=== PATIENT | male | born 1980 | race African-American/Black ===

== ENCOUNTER 2021-03-26 12:15 | Emergency (ER) | payer OTHER ==
--- OUTSIDE RECORDS SUMMARY | 2021-03-26 12:18 | XMS REPORT | Continuity of Care Document ---
:1980 Author Organization [facility] t Address [address] [place] [address] Care Team Providers Name Role Phone UNKNOWN Primary Care Physician Unavailable HOSSAIN Attending Clinician Unavailable PATIENCESARISHI Admitting Clinician Unavailable Problems This patient has no known problems. Allergies, Adverse Reactions, Alerts This patient has no known allergies or adverse reactions. Medications This patient has no known medications. Procedures This patient has no known procedures. Results Test Description Test Time Test Comments Results Result Comments Source Comprehensive Metabolic Panel 2017-05-26 20:18:00 Test Item Value Reference Range Interpretation Comme nts Sodium (test code = NA) 143 mmol/L 135-145 N Potassium (test code = K) 3.8 mmol/L 3.5-5.1 N Chloride (test code = CL) 104 mmol/L 98-105 N Carbon Dioxide (test code = 24 mmol/L 22-29 N CO2) Glucose (test code = GLU) 102 mg/dL 70-115 N Blood Urea Nitrogen (test 7 mg/dL 6-20 N code = BUN) Creatinine (test code = 0.9 mg/dL 0.7-1.2 N CREAT) Calcium (test code = CA) 9.5 mg/dL 8.3-10.5 N Prot Total (test code = TP) 7.0 g/dL 6.4-8.3 N Albumin (test code = ALB) 4.6 g/dL 3.5-5.2 N A/G Ratio (test code = 1.9 Ratio AGRATIO) Globulin (test code = GLOB) 2.4 2.9-3.1 L Bili Total (test code = 0.3 mg/dL 0.1-0.9 N TBIL) Alk Phos (test code = 92 U/L 40-129 N APHOS) AST (test code = AST) 21 U/L 1-40 N ALT (test code = ALT) 17 U/L 1-41 N BUN/Creatinine Ratio (test 7.8 code = BCRATIO) Anion Gap (test code = 15 mmol/L 7-16 N AGAP) Estimated GFR (test code = >60 mL/min/1.73m2 eGFR (estimated Glomerular GFR) Filtration Rate ) is an estimated value ,calculated from the patien t's serum creatinine usin g the MDRD equation.It is NOT the patient's actua l GFR. The eGFR provides a more clinicallyusefu l measure of kidney disease than serum creatinine ada e.This calculation liborio es sex and race into accou nt, if the informationis p rovided. If the race is not provided, and the patient isAfrican-Ameri can, multiply by 1.212. If se x is not provided, and t hepatient is female, multipl y by 0.742. Results for pat ients <18 years ofage hav e not been validated by th e MDRD study and should be i nterpretedwith caution.eGFR Re sult Interpretation: eGFR > or = 60 is in the [place] RangeeGFR < 60 may mean kid lior diseaseeGFR < 1 5 may mean kidney failure* Ranges recommended by the National Kidney Foundation,http ://nkdep.nih.g ov CBC with [id number] 20:18:00 Test Item Value Reference Range Interpretation Comments WBC (test code = WBC) 5.5 K/cumm 4.4-10.5 N RBC (test code = RBC) 4.55 M/cumm 4.10-5.70 N Hemoglobin (test code = HGB) 14.6 gm/dL 13.4-17.4 N Hematocrit (test code = HCT) 43.9 % 38.7-52.0 N MCV (test code = MCV) 96.6 fL 80-100 N MCH (test code = MCH) 32.1 pg 27.0-32.5 N MCHC (test code = MCHC) 33.2 g/dL 32.0-37.5 N RDW (test code = RDW) 14.7 % 11.5-14.5 H Platelet Count (test code = 220 K/cumm 140-440 N PLTCT) MPV (test code = MPV) 9.3 fL Diff Method (test code = DIFFM) Auto Neutrophil (test code = NEUT) 57.9 % 36-70 N Lymphocyte (test code = LYMPH) 31.7 % 12-44 N Monocyte (test code = MONO) 5.1 % 0-11 N Eosinophil (test code = EOS) 4.6 % 0-7 N Basophil (test code = BASO) 0.6 % 0-2 N Neutro Abs (test code = ANEUT) 3.2 K/cumm 1.6-7.4 N Lymph Abs (test code = ALYMPH) 1.7 K/cumm 0.5-4.6 N [place] Abs (test code = AMONO) 0.3 K/cumm 0.0-1.2 N Eos Abs (test code = AEOS) 0.25 K/cumm 0.00-0.74 N Baso Abs (test code = ABASO) 0.0 K/cumm 0.00-0.21 N [id number] 20:11:00 Test Item Value Reference Range Interpretation Comments Amphetamine (test code Negative Negative N For d iagnostic = AMPH) purposes only, positive result s should always b e assessedin conjunctionwith the patient's medic al history,clinica l examination and otherfindings.T o fulfill legal requirements, a more specific altern ate chemical method must be used inorder to obtain a Confirmed angelique lytical result. GC/MS i s the preferred confi rmatory method. Barbiturates (test Negative Negative N code = ZORAIDA) Benzodiazepine (test Negative Negative N code = AWA) Cocaine (test code = Negative Negative N COCA) Methadone (test code = Negative Negative N MTHD) Opiates (test code = Negative Negative N OPIA) PCP (test code = PCP) Negative Negative N Propoxyphene (test Negative Negative N code = PROPOX) THC (test code = THC) POSITIVE Negative A Alcohol, Urine (test 0.19 g/dL 0.00-0.01 H code = ETOHU) Urinalysis [id number] 20:09:00 Test Item Value Reference Range Interpretation Comments Color (test code = COLOR) Yellow Yellow,Straw,Pl N yellow Clarity (test code = Clear Clear N CLAR) Specific [place] (test 1.006 1.001-1.035 N code = SPGR) pH (test code = PH) 7.0 5.0-9.0 N Ketone (test code = KET) Negative mg/dL Negative N Glucose (test code = Negative mg/dL Negative N GLUCUR) Protein (test code = Negative mg/dL Negative N PROT) Bilirubin (test code = Negative mg/dL Negative N BILI) Occult Blood (test code = Negative Negative N UDOB) Urobilinogen (test code = 0.2 mg/dL 0.2-1.0 N UROB) Nitrite (test code = NIT) Negative Negative N Leuk Esterase (test code Negative Negative N = LEUK) Micros Exam (test code = Not indicated MEXAM)
--- NOTE | 2021-03-26 12:58 | ER ---
Nurse's Notes [facility] Name: Wojciech Zhu III Age: 40 yrs Sex: Male : 1980 Arrival Date: 03/26/2021 Time: 12:16 Bed Waiting Private MD: Diagnosis: ED Course: 03/26 12:16 Patient arrived in ED. ds1 12:58 Patient's name was called from ER lobby. No response. Unable to locate patient. Will ca1 disposition as left without being seen by a provider. Administered Medications: No medications were administered Outcome: 12:58 Patient left the ED. ca1 Signatures: Andria Villalpando ds1 Gloria Page RN RN ca1
== END 2021-03-26 12:58 | disposition left against medical advice (07) ==
LOC: ER 12:15
DX: R69 Illness, unspecified (principal); Z53.21 Procedure and treatment not carried out due to patient leaving prior to being seen by health care provider

== ENCOUNTER 2021-07-17 13:15 | Emergency (ER) | payer OTHER ==
--- OUTSIDE RECORDS SUMMARY | 2021-07-17 13:17 | XMS REPORT | Continuity of Care Document ---
:1980 Author Organization [facility] t Address [address] [place] [address] Care Team Providers Name Role Phone UNKNOWN Primary Care Physician Unavailable HOSSAIN Attending Clinician Unavailable HOSSAIN Admitting Clinician Unavailable Problems This patient has no known problems. Allergies, Adverse Reactions, Alerts Allergy Allergy Status Severity Reaction(s) Onset Inactive Treating Comm ents Source Name Type Date Date Clinician No Known DA Active U [facility] Drug 04-14 Allergie 00:00: s 00 Medications This patient has no known medications. Vital Signs Vital Name Observation Time Observation Value Comments Source 02 Sat by Pulse Oximetry 2021-04-14 19:04:18 98 /min Body Mass Index 2021-04-14 19:04:18 23.1 Height 2021-04-14 19:04:18 182.88\S\72 Pulse Rate 2021-04-14 19:04:18 99 /min Respiratory Rate 2021-04-14 19:04:18 17 /min Temperature 2021-04-14 19:04:18 36.6\S\98 Weight 2021-04-14 19:04:18 11358.703\S\2720 02 Sat by Pulse Oximetry 2021-04-14 18:19:58 100 /min Body Mass Index 2021-04-14 18:19:58 23.1 Height 2021-04-14 18:19:58 182.88\S\72 Pulse Rate 2021-04-14 18:19:58 120 /min Respiratory Rate 2021-04-14 18:19:58 20 /min Temperature 2021-04-14 18:19:58 37.0\S\98.6 Weight 2021-04-14 18:19:58 08666.703\S\2720 02 Sat by Pulse Oximetry 2021-04-14 17:15:17 100 /min Body Mass Index 2021-04-14 17:15:17 23.1 Height 2021-04-14 17:15:17 182.88\S\72 Pulse Rate 2021-04-14 17:15:17 135 /min Respiratory Rate 2021-04-14 17:15:17 20 /min Temperature 2021-04-14 17:15:17 37.0\S\98.6 Weight 2021-04-14 17:15:17 67738.703\S\2720 02 Sat by Pulse Oximetry 2021-04-14 16:55:24 100 /min Body Mass Index 2021-04-14 16:55:24 23.1 Height 2021-04-14 16:55:24 182.88\S\72 Pulse Rate 2021-04-14 16:55:24 135 /min Respiratory Rate 2021-04-14 16:55:24 20 /min Temperature 2021-04-14 16:55:24 37.0\S\98.6 Weight 2021-04-14 16:55:24 77188.703\S\2720 02 Sat by Pulse Oximetry 2021-04-14 16:52:51 100 /min Body Mass Index 2021-04-14 16:52:51 18.2 Height 2021-04-14 16:52:51 185.42\S\73 Pulse Rate 2021-04-14 16:52:51 64 /min Respiratory Rate 2021-04-14 16:52:51 16 /min Temperature 2021-04-14 16:52:51 36.8\S\98.2 Weight 2021-04-14 16:52:51 79722.747\S\2208 WEIGHT 2021-04-14 16:50:00 62.155174 kg HEIGHT 2021-04-14 16:50:00 185.42 cm 02 Sat by Pulse Oximetry 2021-04-14 16:36:33 100 /min Body Mass Index 2021-04-14 16:36:33 23.1 Height 2021-04-14 16:36:33 182.88\S\72 Pulse Rate 2021-04-14 16:36:33 135 /min Respiratory Rate 2021-04-14 16:36:33 20 /min Temperature 2021-04-14 16:36:33 37.0\S\98.6 Weight 2021-04-14 16:36:33 87711.703\S\2720 02 Sat by Pulse Oximetry 2021-04-14 16:33:30 100 /min Body Mass Index 2021-04-14 16:33:30 23.1 Height 2021-04-14 16:33:30 182.88\S\72 Pulse Rate 2021-04-14 16:33:30 135 /min Respiratory Rate 2021-04-14 16:33:30 20 /min Temperature 2021-04-14 16:33:30 37.0\S\98.6 Weight 2021-04-14 16:33:30 66815.703\S\2720 02 Sat by Pulse Oximetry 2021-04-14 16:32:29 100 /min Body Mass Index 2021-04-14 16:32:29 23.1 Height 2021-04-14 16:32:29 182.88\S\72 Pulse Rate 2021-04-14 16:32:29 135 /min Respiratory Rate 2021-04-14 16:32:29 20 /min Temperature 2021-04-14 16:32:29 37.0\S\98.6 Weight 2021-04-14 16:32:29 53616.703\S\2720 02 Sat by Pulse Oximetry 2021-04-14 16:28:24 100 /min Body Mass Index 2021-04-14 16:28:24 23.1 Height 2021-04-14 16:28:24 182.88\S\72 Pulse Rate 2021-04-14 16:28:24 135 /min Respiratory Rate 2021-04-14 16:28:24 20 /min Temperature 2021-04-14 16:28:24 37.0\S\98.6 Weight 2021-04-14 16:28:24 05717.703\S\2720 WEIGHT 2021-04-14 16:24:00 77.315256 kg HEIGHT 2021-04-14 16:24:00 182.88 cm Procedures This patient has no known procedures. [...] ofage hav e not been validated by e MDRD study and should be i nterpretedwith caution.eGFR Re sult Interpretation: eGFR > or = 60 is in the [place] RangeeGFR < 60 may mean kid lior diseaseeGFR < 1 5 may mean kidney failure* Ranges recommended by the National Kidney Foundation,http ://nkdep.nih.g ov CBC with [id number] 20:18:00 Test Item Value Reference Range Interpretation [...] code = ALYMPH) 1.7 K/cumm 0.5-4.6 N [place] Abs (test code = AMONO) 0.3 K/cumm 0.0-1.2 N Eos Abs (test code = AEOS) 0.25 K/cumm 0.00-0.74 N Baso Abs (test code = ABASO) 0.0 K/cumm 0.00-0.21 N [id number] 20:11:00 Test Item Value Reference Range Interpretation [...] g/dL 0.00-0.01 H code = ETOHU) Urinalysis [id number] 20:09:00 Test Item Value Reference Range Interpretation Comments Color (test code = COLOR) Yellow Yellow,Straw,Pl N yellow Clarity (test code = Clear Clear N CLAR) Specific [place] (test 1.006 1.001-1.035 N code = SPGR) [...]
[2021-07-17 18:04] LABS: Urine Blood Trace-intact (Negative); Urine Glucose Negative (Negative); Urine Protein Negative (Negative); Urine Specific Gravity 1.025 (1.005-1.030)
--- NOTE | 2021-07-17 18:17 | RAD REPORT ---
EXAM DESCRIPTION: CT - Stone Protocol - 07/17/2021 6:06 pm CLINICAL HISTORY: Flank pain;Hematuria COMPARISON: No comparisons TECHNIQUE: Axial 3 mm thick images were obtained without oral or IV contrast. The bieux-ap-bjqn span s the entirety of the system including uppermost abdomen and lung bases. All CT scans are performed using dose optimization technique as appropriate and may include automated exposure control or mA/KV adjustment according to patient size. FINDINGS: No hydronephrosis is present and no obstructing ureteral calculi. No nonobstructing renal, ureteral or bladder calculi seen. No suspicious renal masses. Isodense masses and pyelonephritis are not excluded on a stone protocol CT scan. No significant adrenal finding. Urinary bladder is mostly contracted which precludes full assessment. No accurate assessment of possible mass lesion can be mad e. No prostate gland enlargement. Imaged portions of the liver, spleen and pancreas show no suspicious findings on non-contrast imaging . No gallbladder or biliary tree abnormality identified. No suspicious bowel findings. Appendix is normal. No hernia, mass or bulky lymphadenopathy noted. No free air, free fluid or inflammatory stranding. No significant bony abnormality. IMPRESSION: No abnormality identified to explain hematuria. Isodense masses and pyelonephritis are not excluded on stone protocol technique.Bladder cannot be ful ly evaluated in the contracted state. Cystitis and bladder mass cannot be excluded.
[2021-07-17] MEDS ORDERED: NA CHLORIDE 0.9% 1,000 ML ONE (18:28)
--- NOTE | 2021-07-17 18:39 | EDPHYS ---
Physician Documentation [facility] Name: Wojciech Zhu III Age: 40 yrs Sex: Male : 1980 Arrival Date: 07/17/2021 Time: 13:19 Bed 10 Private MD: NISHA Physician Bib Alcala HPI: 07/17 18:33 This 40 yrs old Black Male presents to ER via Ambulatory with complaints of Blood In harpreet urine. 18:33 The patient presents with urinary symptoms, hematuria, and in semem. Onset: The harpreet symptoms/episode began/occurred 1 week(s) ago. Modifying factors: The symptoms are alleviated by nothing, the symptoms are aggravated by sexual intercourse. Associated signs and symptoms: The patient has no apparent associated signs or symptoms. Severity of symptoms: At their worst the symptoms were mild, in the emergency department the symptoms are unchanged. The patient has not experienced similar symptoms in the past. Historical: - Allergies: 14:17 No Known Allergies; ll1 - PMHx: 14:17 None; ll1 - PSHx: 14:17 None; ll1 - Immunization history:: Adult Immunizations up to date. - Social history:: Smoking status: Patient denies any tobacco usage or history of. ROS: 18:34 Constitutional: Negative for fever, chills, and weight loss, Eyes: Negative for injury, harpreet pain, redness, and discharge, ENT: Negative for injury, pain, and discharge, Neck: Negative for injury, pain, and swelling, Cardiovascular: Negative for chest pain, palpitations, and edema, Respiratory: Negative for shortness of breath, cough, wheezing, and pleuritic chest pain, Abdomen/GI: Negative for abdominal pain, nausea, vomiting, diarrhea, and constipation, Back: Negative for injury and pain, MS/Extremity: Negative for injury and deformity, Skin: Negative for injury, rash, and discoloration, Neuro: Negative for headache, weakness, numbness, tingling, and seizure, Psych: Negative for depression, anxiety, suicide ideation, homicidal ideation, and hallucinations, Allergy/Immunology: Negative for hives, rash, and allergies, Endocrine: Negative for neck swelling, polydipsia, polyuria, polyphagia, and marked weight changes, Hematologic/Lymphatic: Negative for swollen nodes, abnormal bleeding, and unusual bruising. 18:34 : Positive for hematuria. Exam: 18:34 Constitutional: This is a well developed, well nourished patient who is awake, alert, harpreet and in no acute distress. Head/Face: Normocephalic, atraumatic. Eyes: Pupils equal round and reactive to light, extra-ocular motions intact. Lids and lashes normal. Conjunctiva and sclera are non-icteric and not injected. Cornea within normal limits. Periorbital areas with no swelling, redness, or edema. ENT: Nares patent. No nasal discharge, no septal abnormalities noted. Tympanic membranes are normal and external auditory canals are clear. Oropharynx with no redness, swelling, or masses, exudates, or evidence of obstruction, uvula midline. Mucous membranes moist. Neck: Trachea midline, no thyromegaly or masses palpated, and no cervical lymphadenopathy. Supple, full range of motion without nuchal rigidity, or vertebral point tenderness. No Meningismus. Chest/axilla: Normal chest wall appearance and motion. Nontender with no deformity. No lesions are appreciated. Cardiovascular: Regular rate and rhythm with a normal S1 and S2. No gallops, murmurs, or rubs. Normal PMI, no JVD. No pulse deficits. Respiratory: Lungs have equal breath sounds bilaterally, clear to auscultation and percussion. No rales, rhonchi or wheezes noted. No increased work of breathing, no retractions or nasal flaring. Abdomen/GI: Soft, non-tender, with normal bowel sounds. No distension or tympany. No guarding or rebound. No evidence of tenderness throughout. Back: No spinal tenderness. No costovertebral tenderness. Full range of motion. Skin: Warm, dry with normal turgor. Normal color with no rashes, no lesions, and no evidence of cellulitis. MS/ Extremity: Pulses equal, no cyanosis. Neurovascular intact. Full, normal range of motion. Neuro: Awake and alert, GCS 15, oriented to person, place, time, and situation. Cranial nerves II-XII grossly intact. Motor strength 5/5 in all extremities. Sensory grossly intact. Cerebellar exam normal. Normal gait. Psych: Awake, alert, with orientation to person, place and time. Behavior, mood, and affect are within normal limits. 18:34 : CVA tenderness, is absent, Male external genitalia: normal, no abrasion, no discharge, no erythema, no injury, no swelling, no tenderness, no evidence of ulceration, Bladder: is normal, Sexual behavior: the patient is sexually active, and reports a single partner. Vital Signs: 14:16 BP 128 / 71; Pulse 97; Resp 17; Temp 98.1; Pulse Ox 100% ; Weight 77.11 kg; Pain 10/10; ll1 18:00 BP 126 / 68; Pulse 90; Resp 16; Pulse Ox 100% ; vg1 MDM: 17:31 Patient medically screened. harpreet 18:34 Differential diagnosis: UTI. Data reviewed: vital signs, nurses notes, lab test harpreet result(s), urinalysis. Data interpreted: youth nutritional monitor: not applicable for this patient encounter. rate is 97 beats/min, rhythm is regular, Pulse oximetry: is not applicable for this patient encounter. Counseling: I had a detailed discussion with the patient and/or guardian regarding: the historical points, exam findings, and any diagnostic results supporting the discharge/admit diagnosis. 07/17 14:54 Order name: Urine Microscopic Only 07/17 18:03 Order name: Urine Dipstick-Ancillary; Complete Time: 18:19 EDIN 07/17 14:54 Order name: Urine Dipstick-Ancillary (obtain specimen); Complete Time: 18:24 kb 07/17 17:35 Order name: CT Stone Protocol [facility] 07/17 18:33 Order name: Urine Culture harpreet Administered Medications: 18:24 Not Given (Physician Discretion): NS 0.9% 1000 ml IV at 1 bolus Per protocol; 1000 mL vg1 bolus 18:44 Drug: LevOfloxacin 500 mg Route: PO; kg 19:22 Follow up: Response: No adverse reaction vg1 Disposition Summary: 07/17/21 18:39 Discharge Ordered Location: Home harpreet Problem: new harpreet Symptoms: have improved harpreet Condition: Stable harpreet Diagnosis - Hematospermia harpreet - Hematuria, unspecified harpreet Followup: harpreet - With: Private Physician - When: 2 - 3 days - Reason: Recheck today's complaints, Continuance of care, Re-evaluation by your physician Followup: harpreet - With: Gerald Brush MD - When: 5 - 6 days - Reason: Recheck today's complaints, Re-evaluation by your physician Discharge Instructions: - Discharge Summary Sheet harpreet - Hematuria, Adult harpreet - Safe Sex harpreet Forms: - Medication Reconciliation Form harpreet - Thank You Letter harpreet - Antibiotic Education harpreet - Prescription Opioid Use [facility] Prescriptions: - levofloxacin 500 mg Oral Tablet - take 1 tablet by ORAL route once daily for 7 days; 7 tablet; Refills: 0, harpreet Product Selection Permitted Signatures: Dispatcher [employer] Kelsie Santos FNP-C FNP-Bib Cortez MD MD cha Lewis, Lynsay, RN RN ll1 Aleyda Murrieta RN RN Barbara Baltazar RN vg1 Corrections: (The following items were deleted from the chart) 18:38 17:35 IV Saline Lock ordered. [facility] vg1 18:39 17:35 Labs collected and sent ordered. [facility]
--- NOTE | 2021-07-17 18:39 | ER ---
Nurse's Notes [facility] Name: Wojciech Zhu III Age: 40 yrs Sex: Male : 1980 Arrival Date: 07/17/2021 Time: 13:19 Bed 10 Private MD: Diagnosis: Hematospermia;Hematuria, unspecified Presentation: 07/17 14:15 Chief complaint: Patient states: Bloody urine with blood clots in it for 3 days. ll1 Coronavirus screen: Client denies travel out of the [place] in the last 14 days. Ebola Screen: Patient denies travel to an Ebola-affected area in the 21 days before illness onset. Onset of symptoms was July 15, 2021. 14:15 Method Of Arrival: Ambulatory ll1 14:15 Acuity: YOUSIF 3 ll1 14:16 Initial Sepsis Screen: Does the patient meet any 2 criteria? No. Patient's initial ll1 sepsis screen is negative. Does the patient have a suspected source of infection? Yes: Dysuria/Frequency/Urgency/UTI. Risk Assessment: Do you want to hurt yourself or someone else? Patient reports no desire to harm self or others. Historical: - Allergies: 14:17 No Known Allergies; ll1 - PMHx: 14:17 None; ll1 - PSHx: 14:17 None; ll1 - Immunization history:: Adult Immunizations up to date. - Social history:: Smoking status: Patient denies any tobacco usage or history of. Screenin:21 Abuse screen: Denies threats or abuse. Nutritional screening: No deficits noted. vg1 Tuberculosis screening: No symptoms or risk factors identified. Fall Risk None identified. Assessment: 18:00 General: Appears in no apparent distress. comfortable, Behavior is calm, cooperative. vg1 Pain: Denies pain. Neuro: Level of Consciousness is awake, alert, obeys commands, Oriented to person, place, time, situation. Cardiovascular: Patient's skin is warm and dry. Respiratory: Airway is patent Respiratory effort is even, unlabored. GI: No signs and/or symptoms were reported involving the gastrointestinal system. : Reports blood in urine. EENT: No signs and/or symptoms were reported regarding the EENT system. Derm: Skin is intact, is healthy with good turgor. Musculoskeletal: Circulation, motion, and sensation intact. Vital Signs: 14:16 BP 128 / 71; Pulse 97; Resp 17; Temp 98.1; Pulse Ox 100% ; Weight 77.11 kg; Pain 10/10; ll1 18:00 BP 126 / 68; Pulse 90; Resp 16; Pulse Ox 100% ; vg1 ED Course: 13:19 Patient arrived in ED. ds1 14:16 Triage completed. ll1 14:16 Arm band placed on. ll1 17:31 Bib Alcala MD is Attending Physician. [facility] 17:57 Barbara Braun, RN is Primary Nurse. vg1 18:00 Patient has correct armband on for positive identification. Call light in reach. Side vg1 rails up X 1. 18:00 No provider procedures requiring assistance completed. Patient did not have IV access vg1 during this emergency room visit. 18:06 CT Stone Protocol In Process Unspecified. EDMS 18:38 Gerald Brush MD is Referral Physician. [facility] Administered Medications: 18:24 Not Given (Physician Discretion): NS 0.9% 1000 ml IV at 1 bolus Per protocol; 1000 mL vg1 bolus 18:44 Drug: LevOfloxacin 500 mg Route: PO; kg 19:22 Follow up: Response: No adverse reaction vg1 Outcome: 18:39 Discharge ordered by . [facility] 19:22 Discharged to home ambulatory. vg1 19:22 Condition: stable 19:22 Discharge instructions given to patient, Instructed on discharge instructions, follow up and referral plans. medication usage, Demonstrated understanding of instructions, follow-up care, medications, Prescriptions given X 1. 19:22 Patient left the ED. vg1 Signatures: Dispatcher [employer] EDLA Bib Alcala MD MD cha [place], Demi ds1 Barbara Braun RN RN vg1 Christopher Garcia RN RN ll1 Aleyda Murrieta, NGUYEN CEDILLO kg
[2021-07-17] MEDS ORDERED: levoFLOXacin 500 MG TAB ONE (19:04)
[2021-07-17 19:28] VITALS: TEMP 98.1; O2SAT 100
[2021-07-17 19:29] VITALS: BP 126/68
[2021-07-17 20:35] LABS: Urine Bacteria <20 /HPF (NONE SEEN)
== END 2021-07-17 19:22 | disposition home or self-care (01) ==
LOC: ER 13:15
DX: R36.1 Hematospermia (principal)
CPT/HCPCS: 87088; 87086; 76377; 74176; 99283; J7030; 81003; 81015

== ENCOUNTER 2021-07-27 20:53 | Emergency (ER) | payer OTHER ==
--- NOTE | 2021-07-27 21:25 | ER ---
Nurse's Notes [facility] Name: Wojciech Zhu III Age: 40 yrs Sex: Male : 1980 Arrival Date: 07/27/2021 Time: 21:00 Bed Waiting Private MD: Diagnosis: Presentation: 07/27 21:16 Chief complaint: Patient states: headache that started 2 days ago, also reports em dizziness. Coronavirus screen: Vaccine status: Patient reports receiving the 2nd dose of the covid vaccine. Ebola Screen: Patient negative for fever greater than or equal to 101.5 degrees Fahrenheit, and additional compatible Ebola Virus Disease symptoms Patient denies exposure to infectious person. Patient denies travel to an Ebola-affected area in the 21 days before illness onset. No symptoms or risks identified at this time. Initial Sepsis Screen: Does the patient meet any 2 criteria? HR > 90 bpm. No. Patient's initial sepsis screen is negative. Does the patient have a suspected source of infection? No. Patient's initial sepsis screen is negative. Risk Assessment: Do you want to hurt yourself or someone else? Patient reports no desire to harm self or others. Onset of symptoms was July 27, 2021. 21:16 Method Of Arrival: Ambulatory em 21:16 Acuity: YOUSIF 3 em Historical: - Allergies: 21:17 No Known Allergies; em - PMHx: 21:17 None; em - PSHx: 21:17 None; em - Immunization history:: Adult Immunizations up to date. - Social history:: Smoking status: Patient denies any tobacco usage or history of. Vital Signs: 21:16 BP 128 / 95; Pulse 119; Resp 18; Temp 98.5; Pulse Ox 99% on R/A; em ED Course: 21:00 Patient arrived in ED. cf2 21:17 Triage completed. em 21:17 Arm band placed on. em Administered Medications: No medications were administered Outcome: 21:25 Patient left the ED. em Signatures: Ricardo Harrington, RN RN em Lakeisha Foley cf2
[2021-07-27 22:28] VITALS: BP 128/95; TEMP 98.5; O2SAT 99
== END 2021-07-27 21:25 | disposition left against medical advice (07) ==
LOC: ER 20:53
DX: Z53.21 Procedure and treatment not carried out due to patient leaving prior to being seen by health care provider (principal)
CPT/HCPCS: 99281

== ENCOUNTER 2024-10-06 14:11 | Emergency (ER) | payer OTHER ==
--- NOTE | 2024-10-06 15:24 | ER ---
Nurse's Notes [facility] Name: Wojciech Zhu III Age: 43 yrs Sex: Male : 1980 Arrival Date: 10/06/2024 Time: 14:11 Bed IW3 Private MD: Diagnosis: Acute tonsillitis, unspecified Presentation: 10/06 14:24 Chief complaint: Sore throat x 4-5 days, left lower tooth pain x 1 year. Coronavirus hb screen: At this time, the client does not indicate any symptoms associated with coronavirus-19. Ebola Screen: No symptoms or risks identified at this time. Initial Sepsis Screen: Does the patient meet any 2 criteria? No. Patient's initial sepsis screen is negative. Does the patient have a suspected source of infection? No. Patient's initial sepsis screen is negative. Risk Assessment: Do you want to hurt yourself or someone else? Patient reports no desire to harm self or others. Onset of symptoms was October 01, 2024. 14:24 Method Of Arrival: Ambulatory hb 14:24 Acuity: YOUSIF 4 hb Triage Assessment: 14:25 General: Appears in no apparent distress. Behavior is calm, cooperative. Pain: Pain hb currently is 6 out of 10 on a pain scale. EENT: Reports sore throat, LL tooth pain . Neuro: GCS 15. Historical: - Allergies: 14:26 No Known Allergies; hb - Home Meds: 14:26 None [Active]; hb - PMHx: 14:26 None; hb - PSHx: 14:26 None; hb - Immunization history:: Adult Immunizations up to date. - Infectious Disease History:: Denies. - Social history:: Smoking status: Patient denies any tobacco usage or history of. Assessment: 15:34 Reassessment: Patient appears in no apparent distress at this time. Patient and/or hb family updated on plan of care and expected duration. Pain level reassessed. Patient is alert, oriented x 3, equal unlabored respirations, skin warm/dry/pink. Vital Signs: 14:24 BP 123 / 89; Pulse 106; Resp 16; Temp 98; Pulse Ox 100% on R/A; Weight 77.11 kg; Height hb 6 ft. 0 in. ; Pain 6/10; 14:24 Body Mass Index 23.06 (77.11 kg, 182.88 cm) hb 14:24 Pain Scale: Adult hb ED Course: 14:13 Patient arrived in ED. ra3 14:14 [facility] kb 14:14 Bib Alcala MD is Attending Physician. kb 14:26 Triage completed. hb 14:26 Arm band placed on. hb 14:30 Strep Sent. hb 15:34 No provider procedures requiring assistance completed. Patient did not have IV access hb during this emergency room visit. Administered Medications: No medications were administered Outcome: 15:23 Discharge ordered by . kb 15:34 Discharged to home ambulatory, hb 15:34 Condition: stable 15:34 Discharge instructions given to patient, Instructed on discharge instructions, follow up and referral plans. medication usage, Demonstrated understanding of instructions, follow-up care, medications, Prescriptions given X 1, 15:35 Patient left the ED. hb Signatures: Kelsie Castaneda FNP-C FNP-Ckb Baxter, Heather, RN RN Elizabeth Olivo ra3
--- NOTE | 2024-10-06 15:24 | EDPHYS ---
Physician Documentation [facility] Name: Wojciech Zhu III Age: 43 yrs Sex: Male : 1980 Arrival Date: 10/06/2024 Time: 14:11 Bed IW3 Private MD: ED Physician Bib Alcala HPI: 10/06 14:22 This 43 yrs old Black Male presents to ER via Unassigned with complaints of Sore kb Throat, Toothache. 14:22 Pt is a 43 year old male who was recently exposed to strep and has had a sore throat kb for 4 days. Denies fever. Also reports pain to left lower teeth for a year or two. . Historical: - Allergies: 14:26 No Known Allergies; hb - Home Meds: 14:26 None [Active]; hb - PMHx: 14:26 None; hb - PSHx: 14:26 None; hb - Immunization history:: Adult Immunizations up to date. - Infectious Disease History:: Denies. - Social history:: Smoking status: Patient denies any tobacco usage or history of. ROS: 14:23 Constitutional: As per HPI kb Exam: 15:08 Constitutional: This is a well developed, well nourished patient who is awake, alert, kb and in no acute distress. Head/Face: Normocephalic, atraumatic. Cardiovascular: Regular rate Respiratory: Respirations even and unlabored. No increased work of breathing. Talking in full sentences Skin: Warm, dry with normal turgor. Normal color. MS/ Extremity: Pulses equal, no cyanosis. Neurovascular intact. Full, normal range of motion. Neuro: Awake and alert, GCS 15, oriented to person, place, time, and situation. 15:08 ENT: Posterior pharynx: Airway: normal, no evidence of obstruction, Tonsils: bilaterally enlarged, with erythema, Uvula: normal, midline, swelling, that is mild, erythema, that is moderate, Vital Signs: 14:24 BP 123 / 89; Pulse 106; Resp 16; Temp 98; Pulse Ox 100% on R/A; Weight 77.11 kg; Height hb 6 ft. 0 in. ; Pain 6/10; 14:24 Body Mass Index 23.06 (77.11 kg, 182.88 cm) hb 14:24 Pain Scale: Adult hb MDM: 14:14 Medical Screening Exam initiated kb 15:09 Data reviewed: vital signs, nurses notes. kb 15:22 Differential diagnosis: tonsillitis, strep, pharyngitis, dental abscess. Counseling: I kb had a detailed discussion with the patient and/or guardian regarding the historical points, exam findings, and any diagnostic results supporting the discharge/admit diagnosis, lab results, the need for outpatient follow up, a family practitioner, to return to the emergency department if symptoms worsen or persist or if there are any questions or concerns that arise at home. 10/06 14:25 Order name: Strep kb 10/06 14:46 Order name: Throat Culture EDMS Administered Medications: No medications were administered Disposition Summary: 10/06/24 15:23 Discharge Ordered Notes: Location: Home kb Condition: Stable kb Diagnosis - Acute tonsillitis, unspecified kb Followup: kb - With: Emergency Department - When: As needed - Reason: Worsening of condition Followup: kb - With: Private Physician - When: 2 - 3 days - Reason: Recheck today's complaints, Continuance of care, Re-evaluation by your physician Discharge Instructions: - Discharge Summary Sheet kb - Tonsillitis, [id number] kb Forms: - Medication Reconciliation Form kb - Antibiotic Education kb - Prescription Opioid Use kb - Patient Portal Instructions kb - Leadership Thank You Letter kb Prescriptions: - Augmentin 875-125 mg Oral Tablet - take 1 tablet ORAL route every 12 hours for 10 days; 20 tablet; Refills: 0, kb Product Selection Permitted Signatures: Dispatcher [employer] [facility] Kelsie Castaneda, STUART-Rishi DAVIDSON-Sheila Barth, RN RN hb Corrections: (The following items were deleted from the chart) 14:25 14:25 Group A Streptococcus Rapid Sc+BA.LAB.BRZ ordered. EDSD EDMS 15:23 15:23 Streptococcal pharyngitis kb kb
[2024-10-06 17:25] VITALS: BP 123/89; TEMP 98; O2SAT 100
== END 2024-10-06 15:35 | disposition home or self-care (01) ==
LOC: ER 14:11
DX: J03.90 Acute tonsillitis, unspecified (principal)
CPT/HCPCS: 87070; 87081; 99283

== ENCOUNTER 2024-11-24 12:34 | Emergency (ER) | payer OTHER ==
[2024-11-24 12:58] LABS: Absolute Basophils 0.1 K/uL (0-0.5); Absolute Eosinophils 0.2 K/uL (0-0.5); Absolute Lymphocytes (CBC) 1.6 K/uL (0.7-4.9); Absolute Monocytes 0.6 K/uL (0.1-1.3); Absolute Neutrophil 5.2 K/uL (1.8-8.0); Basophils % 0.8 % (0-1.3); Eosinophils % 2.9 % (0-4.4); Hematocrit 41.7 % (39.6-49.0); Hemoglobin 13.8 g/dL (13.6-17.9); Lymphocytes % 21.1 % (15.3-44.8); MCH 29.6 pg (27.0-35.0); MCHC 33.1 g/dL (32.0-36.0); MCV 89.3 fL (80-100); Neutrophils % 67.2 % (41.7-73.7); Platelets 277 thou/uL (152-406); RBC Red Blood Cell Count 4.67 M/uL (4.33-5.43); Red Cell Distribution Width 15.5 % (12.1-15.2)
[2024-11-24 13:07] LABS: PT Prothrombin Time 11.5 SECONDS (9.4-12.5); PTT, Activated Partial Thromb 34.1 SECONDS (24.3-36.9); Protime INR 1.1
[2024-11-24 13:21] LABS: ALT/SGPT 21 U/L (16-61); AST/SGOT 14 U/L (15-37); Albumin/Globulin Ratio 1.1 (1.1-1.8); Alkaline Phosphatase 142 U/L (45-117); BUN Blood Urea Nitrogen 18 mg/dL (7-18); Bicarbonate 32 mEq/L (21-32); Bilirubin Direct 0.3 mg/dL (0-0.2); Bilirubin Indirect, Calculated 0.9 mg/dL (0.2-0.8); Bilirubin Total 1.2 mg/dL (0.2-1.0); Globulin 3.8 g/dL (2.3-3.5); Glomerular Filtration Rate 79 ml/min (=/>90); Glucose Level 92 mg/dL (74-106); Protein, Total 7.8 g/dL (6.4-8.2); Sodium Level 137 mEq/L (136-145)
--- NOTE | 2024-11-24 13:35 | ER ---
Nurse's Notes [facility] Name: Wojciech Zhu III Age: 44 yrs Sex: Male : 1980 Arrival Date: 11/24/2024 Time: 12:34 Bed 16 Private MD: Diagnosis: Psychosis, suicidal ideation Presentation: 11/24 12:44 Chief complaint: MORROW "HE CALLED [facility] FROM [facility]. HE SAYS HE HASN'T TAKEN bp HIS MEDS IN A YEAR AND A HALF AND HE'S HEARING VOICES.". Coronavirus screen: At this time, the client does not indicate any symptoms associated with coronavirus-19. Ebola Screen: No symptoms or risks identified at this time. Initial Sepsis Screen: Does the patient meet any 2 criteria? No. Patient's initial sepsis screen is negative. Does the patient have a suspected source of infection? No. Patient's initial sepsis screen is negative. Risk Assessment: Do you want to hurt yourself or someone else? Patient reports no desire to harm self or others. Note RICARDO BY RADHA WATKINS. Onset of symptoms is unknown. 12:44 Method Of Arrival: Law Enforcement: Radha WATKINS bp 12:44 Acuity: YOUSIF 2 bp Triage Assessment: 12:46 General: Appears slender, unkempt, Behavior is anxious, restless. Pain: Denies pain. bp EENT: No deficits noted. Neuro: Level of Consciousness is awake, alert, obeys commands, Oriented to person, place, time, situation. Cardiovascular: Rhythm is sinus rhythm. Respiratory: No deficits noted. GI: No signs and/or symptoms were reported involving the gastrointestinal system. : No signs and/or symptoms were reported regarding the genitourinary system. Derm: No deficits noted. Musculoskeletal: No deficits noted. Historical: - Allergies: 12:46 No Known Allergies; bp - Home Meds: 12:46 Unable to obtain [Active]; bp - PMHx: 12:46 Bipolar disorder; Schizophrenia; bp - Immunization history:: Adult Immunizations unknown. - Infectious Disease History:: Denies. - Social history:: Smoking status: unknown. Screenin:50 [facility] ED Fall Risk Assessment (Adult) History of falling in the last 3 months, bp including since admission No falls in past 3 months (0 pts) Confusion or Disorientation No (0 pts) Intoxicated or Sedated No (0 pts) Impaired Gait No (0 pts) Mobility Assist Device Used No (0 pt) Altered Elimination No (0 pt) Score/Fall Risk Level 0 - 2 = Low Risk Oriented to surroundings. Abuse screen: Denies threats or abuse. Denies injuries from another. Nutritional screening: No deficits noted. Tuberculosis screening: No symptoms or risk factors identified. Assessment: 12:40 Reassessment: to room with [place] [employer] officer and database technician Vladimir as sitter. hb 13:30 Reassessment: REPORT TO WOJCIECH AT [facility]. bp Psych: 12:45 [place] Suicide Severity Screening: In the past month, have you wished you were bp or wished you could go to sleep and not wake up? Patient responds "yes." Based off the client's responses additional C-SSRS screening is required. "In the past month, have you actually had any thoughts of killing yourself?" Patient responds "no." "In your lifetime, have you ever done anything, started to do anything, or prepared to do anything to end your life?" Patient responds "no.". Subjective: Patient's mood is sad, Delusions are denied, Hallucinations are auditory. Objective: Patient is cooperative, Speech is normal. Interventions: Removed personal items and placed in bag. Patient placed in hospital gown. Searched person for dangerous items. Safety Checks: Personal items have been removed. Door is open. No visitors are present at this time. Pt denies substance abuse. Vital Signs: 13:00 BP 135 / 100; Pulse 102; Resp 16; Temp 97.7; Pulse Ox 100% ; Weight 80.29 kg; Height 6 bp ft. 0 in. ; 14:23 BP 131 / 85; Pulse 91; Resp 16; Temp 97.7; Pulse Ox 99% ; bp 13:00 Body Mass Index 24.01 (80.29 kg, 182.88 cm) bp ED Course: 12:40 Patient arrived in ED. hb 12:40 Yuridia Cummings MD is Attending Physician. sp3 12:43 Jesús Bermudez, NGUYEN is Primary Nurse. bp 12:46 Triage completed. bp 12:46 Arm band placed on. bp 12:50 Initial lab(s) drawn, by ED staff, sent to lab. Inserted saline lock: 20 gauge in right bp forearm, using aseptic technique. Blood collected. Flushed with 10 mL NS. 12:55 EKG done, by ED staff, reviewed by Yuridia Cummings MD. ty 13:17 faxed patient clinical information to [facility], [facility], and [facility]. 13:26 connected Roger Rn from [facility] with Jesús Rn for nurse to nurse. eb Administered Medications: 14:23 Not Given (PT TRANSFERREDd): potassiumeffervescent tablet 50 meq PO once; dissolve in 4 bp ounces of water or juice Outcome: 13:34 ER care complete, transfer ordered by sp3 14:23 Patient left the ED. eb 14:23 Transferred by ground EMS bp 14:23 Condition: stable 14:23 Instructed on the need for transfer, Signatures: Sheila Rider, RN RN Jesús Bermudez, RN RN Esme De Oliveira Setul, MD MD sp3 Vladimir Goldstein ty Corrections: (The following items were deleted from the chart) 14:30 12:40 Reassessment: to room with [place] [employer] officer. hb hb
--- NOTE | 2024-11-24 13:35 | EDPHYS ---
Physician Documentation [facility] Name: Wojciech Zhu III Age: 44 yrs Sex: Male : 1980 Arrival Date: 11/24/2024 Time: 12:34 Bed 16 Private MD: ED Physician Yuridia Cummings HPI: 11/24 12:51 This 44 yrs old Black Male presents to ER via Law Enforcement with complaints of Psych sp3 Problem. 12:51 44-year-old male with history of schizophrenia, bipolar disease now presents to the ED sp3 with chief complaint psychosis with voices telling him to "kill himself and given his passwords". Patient's last Seroquel was prescribed in [place] and has not seen mental health specialist or any physician for months now. He has had a few visits here locally for nonpsychiatric related issues. He currently denies headache, fever, URI symptoms, neck pain, shortness of breath, chest pain, abdominal pain, nausea, vomiting, diarrhea, illicit substance use, or any other signs or symptoms on ROS at this time.. Historical: - Allergies: 12:46 No Known Allergies; bp - Home Meds: 12:46 Unable to obtain [Active]; bp - PMHx: 12:46 Bipolar disorder; Schizophrenia; bp - Immunization history:: Adult Immunizations unknown. - Infectious Disease History:: Denies. - Social history:: Smoking status: unknown. ROS: 12:55 Constitutional: Negative for fever, chills, and weight loss, Eyes: Negative for injury, sp3 pain, redness, and discharge, ENT: Negative for injury, pain, and discharge, Neck: Negative for injury, pain, and swelling, Cardiovascular: Negative for chest pain, palpitations, and edema, Respiratory: Negative for shortness of breath, cough, wheezing, and pleuritic chest pain, Abdomen/GI: Negative for abdominal pain, nausea, vomiting, diarrhea, and constipation, Back: Negative for injury and pain, MS/Extremity: Negative for injury and deformity, Skin: Negative for injury, rash, and discoloration, Neuro: Negative for headache, weakness, numbness, tingling, and seizure, Allergy/Immunology: Negative for hives, rash, and allergies, Endocrine: Negative for neck swelling, polydipsia, polyuria, polyphagia, and marked weight changes, Hematologic/Lymphatic: Negative for swollen nodes, abnormal bleeding, and unusual bruising, 12:55 All other systems are negative, Exam: 12:55 Constitutional: This is a well developed, well nourished patient who is awake, alert, sp3 and in no acute distress. Head/Face: Normocephalic, atraumatic. Eyes: Pupils equal round and reactive to light, extra-ocular motions intact. Lids and lashes normal. Conjunctiva and sclera are non-icteric and not injected. Cornea within normal limits. Periorbital areas with no swelling, redness, or edema. Neck: Trachea midline, no thyromegaly or masses palpated, and no cervical lymphadenopathy. Supple, full range of motion without nuchal rigidity, or vertebral point tenderness. No Meningismus. Chest/axilla: Normal chest wall appearance and motion. Nontender with no deformity. No lesions are appreciated. Cardiovascular: Regular rate and rhythm with a normal S1 and S2. No gallops, murmurs, or rubs. Normal PMI, no JVD. No pulse deficits. Respiratory: Lungs have equal breath sounds bilaterally, clear to auscultation and percussion. No rales, rhonchi or wheezes noted. No increased work of breathing, no retractions or nasal flaring. Abdomen/GI: Soft, non-tender, with normal bowel sounds. No distension or tympany. No guarding or rebound. No evidence of tenderness throughout. Back: No spinal tenderness. No costovertebral tenderness. Full range of motion. Skin: Warm, dry with normal turgor. Normal color with no rashes, no lesions, and no evidence of cellulitis. MS/ Extremity: Pulses equal, no cyanosis. Neurovascular intact. Full, normal range of motion. Neuro: Awake and alert, GCS 15, oriented to person, place, time, and situation. Cranial nerves II-XII grossly intact. Motor strength 5/5 in all extremities. Sensory grossly intact. Cerebellar exam normal. Normal gait. 12:55 Psych: Patient still actively psychotic however does not appear to be responding to internal stimuli. He does endorse suicidal ideation but denies homicidal ideation.. 13:24 ECG was reviewed by the Attending Physician. EKG demonstrates sinus tachycardia at 100 sp3 bpm with normal intervals, normal QRS, normal axis, high voltage and nonspecific diffuse ST/T changes without evidence of acute ischemia. Vital Signs: 13:00 BP 135 / 100; Pulse 102; Resp 16; Temp 97.7; Pulse Ox 100% ; Weight 80.29 kg; Height 6 bp ft. 0 in. ; 14:23 BP 131 / 85; Pulse 91; Resp 16; Temp 97.7; Pulse Ox 99% ; bp 13:00 Body Mass Index 24.01 (80.29 kg, 182.88 cm) bp MDM: 12:40 Medical Screening Exam initiated sp3 12:55 Data reviewed: vital signs, nurses notes, lab test result(s), radiologic studies. ED sp3 course: 44-year-old male with bipolar disease and schizophrenia now for psychosis and suicidal ideation. Differential diagnosis includes psychosis from schizophrenia versus gail versus depression episode with manic symptoms, versus other somatic issue. Will rule out any medical etiology and refer to psychiatry. Standard workup pending.. 13:33 ED course: Initial workup negative. Potassium will be replaced. UDS pending however not sp3 highly suspicious that it is positive. Patient will be accepted at psych facility voluntarily.. 11/24 12:41 Order name: Acetaminophen; Complete Time: 13:33 sp3 11/24 12:41 Order name: Basic Metabolic Panel; Complete Time: 13:33 3 11/24 12:41 Order name: CBC with Diff; Complete Time: 13:33 3 11/24 12:41 Order name: ETOH Level; Complete Time: 13:33 sp3 11/24 12:41 Order name: Hepatic Function; Complete Time: 13:33 3 11/24 12:41 Order name: PT-INR; Complete Time: 13:33 3 11/24 12:41 Order name: Ptt, Activated; Complete Time: 13:33 sp3 11/24 12:41 Order name: Salicylate; Complete Time: 13:33 3 11/24 12:41 Order name: Urinalysis w/ reflexes 11/24 12:41 Order name: Urine Drug Screen 11/24 12:41 Order name: EKG; Complete Time: 12:42 sp11/24 12:41 Order name: EKG - Nurse/Tech; Complete Time: 13:30 3 11/24 12:41 Order name: IV Saline Lock; Complete Time: 13:30 3 11/24 12:41 Order name: Labs collected and sent; Complete Time: 13:30 sp3 11/24 12:41 Order name: Suicide Precautions; Complete Time: 13:32 sp3 11/24 12:41 Order name: Suicide Screening ([place]); Complete Time: 13:32 sp3 Administered Medications: 14:23 Not Given (PT TRANSFERREDd): potassiumeffervescent tablet 50 meq PO once; dissolve in 4 bp ounces of water or juice Disposition Summary: 11/24/24 13:34 Transfer Ordered Notes: Transfer Location: Psych Facility sp3 Reason: Higher level of care sp3 Condition: Stable sp3 Problem: an acute exacerbation sp3 Symptoms: have worsened sp3 Accepting Physician: psych(11/24/24 14:23) eb Diagnosis - Psychosis, suicidal ideation sp3 Forms: - Medication Reconciliation Form sp3 - SBAR form sp3 Signatures: Dispatcher [employer] EDMS Jesús Bermudez RN RN bp Botello, Elizabeth eb Patel, Setul, MD MD sp3 Corrections: (The following items were deleted from the chart) 12:42 12:42 ACETAMINOPHEN+C.LAB.BRZ ordered. EDMS EDMS 12:42 12:42 BASIC METABOLIC PANEL+C.LAB.BRZ ordered. EDMS EDMS 12:42 12:42 CBC+H.LAB.BRZ ordered. EDMS EDMS 12:42 12:42 ETHANOL+C.LAB.BRZ ordered. EDMS EDMS 12:42 12:42 HEPATIC FUNCTION+C.LAB.BRZ ordered. EDMS EDMS 12:42 12:42 PROTIME (+INR)+COAG.LAB.BRZ ordered. EDMS EDMS 12:42 12:42 PTT, ACTIVATED+COAG.LAB.BRZ ordered. EDMS EDMS 12:42 12:42 SALICYLATE+C.LAB.BRZ ordered. EDMS EDMS 12:42 12:42 Urinalysis+U.LAB.BRZ ordered. EDMS EDMS 12:42 12:42 URINE DRUG SCREEN+UC.LAB.BRZ ordered. EDMS EDMS 14:23 13:34 psych sp3 eb
[2024-11-24 14:11] LABS: Specific Gravity 1.028 (1.005-1.030); Urine Bilirubin NEGATIVE (Negative); Urine Blood Negative (Negative); Urine Clarity Clear (Clear); Urine Color Yellow (Yellow); Urine Glucose NEGATIVE (Negative); Urine Ketones 2+ (Negative); Urine Nitrite NEGATIVE (Negative); Urine Protein TRACE (Negative); Urine Urobilinogen 1+ (Normal); Urine pH 6.5 (5.0-7.0)
[2024-11-24 14:12] LABS: Sqamous Epithelial None Seen /HPF (None Seen); Urine Bacteria None Seen /HPF (<20); Urine Culture Reflex Order NOT NEEDED; Urine Microscopic Reflex YN ORDER UMIC; Urine Mucus Slight /HPF (None Seen); Urine WBC <5 /HPF (<5)
[2024-11-24 14:26] LABS: Barbiturates NEGATIVE (NEGATIVE); Benzodiazepines NEGATIVE (NEGATIVE); Cocaine NEGATIVE (NEGATIVE); METHAMPHETAM POSITIVE (NEGATIVE); Methadone NEGATIVE (NEGATIVE); Opiates NEGATIVE (NEGATIVE); Phencyclidine NEGATIVE (NEGATIVE); THC Cannibis POSITIVE (NEGATIVE)
--- NOTE | 2024-11-25 11:50 | EKG ---
Test Date: 2024-11-24 Test Time: 12:58:04 Full Decator Operator: LONG MEASUREMENT RESULTS: Intervals: Rate: 103 AK: 150 QRSD: 90 QT: 356 QTc: 466 [place]: P: 65 AK: 150 QRS: 30 T: 53 INTERPRETIVE STATEMENTS: Sinus tachycardia Possible Left atrial enlargement Borderline ECG No previous ECG available for comparison Electronically Signed On 11-25-24 11:50:15 PHARMACY TECH CUSTOMER SERVICE by Brenton Kraus
[2024-11-26 02:16] VITALS: BP 131/85; TEMP 97.7; O2SAT 99
== END 2024-11-24 14:23 ==
LOC: ER 12:34
DX: R45.851 Suicidal ideations (principal); F29 Unspecified psychosis not due to a substance or known physiological condition; F20.9 Schizophrenia, unspecified; F31.9 Bipolar disorder, unspecified
CPT/HCPCS: 36415; 80048; 80076; 80143; 80179; 80307; 81001; 82077; 85025; 85610; 85730; 93005; 99285

== ENCOUNTER 2025-04-01 08:13 | Emergency (ER) | payer OTHER ==
[2025-04-01] MEDS ORDERED: FAMOTIDINE 20 MG/2 ML VIAL IV ONE (08:26)
[2025-04-01] MEDS ORDERED: ASPIRIN 81 MG CHEWABLE TABLET ONE (08:26)
--- NOTE | 2025-04-01 08:42 | ER ---
Nurse's Notes [facility] Name: Wojciech Zhu III Age: 44 yrs Sex: Male : 1980 Arrival Date: 04/01/2025 Time: 08:11 Bed 6 Private MD: Diagnosis: Chest pain, unspecified;Bipolar disorder, unspecified Presentation: 04/01 08:11 Chief complaint: Patient states: chest pain during an argument with a friend. Pt aa5 reports chest pain has improved. 08:11 Coronavirus screen: At this time, the client does not indicate any symptoms associated aa5 with coronavirus-19. Ebola Screen: Patient denies travel to an Ebola-affected area in the 21 days before illness onset. Initial Sepsis Screen: Does the patient meet any 2 criteria? No. Patient's initial sepsis screen is negative. Does the patient have a suspected source of infection? No. Patient's initial sepsis screen is negative. Risk Assessment: Do you want to hurt yourself or someone else? Patient reports no desire to harm self or others. Onset of symptoms was April 01, 2025. 08:11 Acuity: YOUSIF 3 aa5 08:11 Method Of Arrival: EMS: [facility] aa5 Historical: - Allergies: 08:11 No Known Allergies; aa5 - PMHx: 08:11 Bipolar disorder; Schizophrenia; aa5 - PSHx: 08:11 None; aa5 - Immunization history:: Adult Immunizations unknown. - Infectious Disease History:: Denies. - Family history:: not pertinent. Screenin:32 [facility] ED Fall Risk Assessment (Adult) History of falling in the last 3 months, iw including since admission No falls in past 3 months (0 pts) Confusion or Disorientation No (0 pts) Intoxicated or Sedated No (0 pts) Impaired Gait No (0 pts) Mobility Assist Device Used No (0 pt) Altered Elimination No (0 pt) Score/Fall Risk Level 0 - 2 = Low Risk Oriented to surroundings, Maintained a safe environment. Abuse screen: Denies threats or abuse. Nutritional screening: No deficits noted. Tuberculosis screening: No symptoms or risk factors identified. Assessment: 08:31 Reassessment: pt refusing IV and blood work, states he feels fine, no longer having iw pain, pt states "I'm refusing treatment, you can give me discharge papers". 08:32 Reassessment: pt eating a sandwich and drinking shannan shereen Patient denies pain at this iw time. Vital Signs: 08:11 BP 129 / 100; Pulse 100; Resp 18 S; Temp 98.2(O); Pulse Ox 100% on R/A; Weight 77.11 kg aa5 (R); Height 6 ft. 0 in. (R); Pain 4/10; 08:11 Body Mass Index 23.06 (77.11 kg, 182.88 cm) aa5 08:11 Pain Scale: Adult aa5 ED Course: 08:11 Patient arrived in ED. aa5 08:11 Arm band placed on. aa5 08:13 Triage completed. aa5 08:16 Rosa Elena Olmstead, RN is Primary Nurse. iw 08:19 Bib Alcala MD is Attending Physician. harpreet 08:26 Diet: Patient given snack. Patient given juice. em1 08:26 Client placed on continuous cardiac and pulse oximetry monitoring. NIBP monitoring iw applied. laboratory monitor on. 08:26 EKG done, by ED staff, reviewed by Bib Alcala MD. em1 08:33 Patient has correct armband on for positive identification. iw 08:40 Mike Prince MD is Referral Physician. [facility] 08:46 No provider procedures requiring assistance completed. Patient did not have IV access iw during this emergency room visit. Patient maintains SpO2 saturation greater than 95% on room air. Administered Medications: 08:31 Not Given (Patient Refused): aspirinchewable tablet 324 mg PO once; 81 mg tablets x 4 iw 08:31 Not Given (Patient Refused): [id number] mg IVP once; dilute with 10 mL 0.9% NaCl; iw give over 2 minutes Medication: 08:32 VIS not applicable for this client. iw Outcome: 08:41 Discharge ordered by . harpreet 08:46 Discharged to home ambulatory, iw 08:46 Condition: good 08:46 Discharge instructions given to patient, Instructed on discharge instructions, follow up and referral plans. Demonstrated understanding of instructions, 08:47 Patient left the ED. iw Signatures: Bib Alcala MD MD cha Williams, Irene, RN RN iw Braden Odom em1 Crystal Benitez RN RN aa5
--- NOTE | 2025-04-01 08:42 | EDPHYS ---
Physician Documentation [facility] Name: Wojciech Zhu III Age: 44 yrs Sex: Male : 1980 Arrival Date: 04/01/2025 Time: 08:11 Bed 6 Private MD: ED Physician Bib Alcala HPI: 04/01 08:37 This 44 yrs old Black Male presents to ER via EMS with complaints of Chest Pain. harpreet 08:37 The patient or guardian reports chest pain that is located primarily in the anterior harpreet chest wall, bilaterally. Onset: just prior to arrival. The pain does not radiate. Associated signs and symptoms: Pertinent positives: None. The chest pain is described as aching. Duration: The patient or guardian reports a single episode, that is now resolved. Modifying factors: The symptoms are alleviated by nothing. the symptoms are aggravated by nothing. Severity of pain: At its worst the pain was mild in the emergency department the pain is unchanged. The patient has experienced similar episodes in the past, several times. Historical: - Allergies: 08:11 No Known Allergies; aa5 - PMHx: 08:11 Bipolar disorder; Schizophrenia; aa5 - PSHx: 08:11 None; aa5 - Immunization history:: Adult Immunizations unknown. - Infectious Disease History:: Denies. - Family history:: not pertinent. ROS: 08:37 Constitutional: Negative for fever, chills, and weight loss, Eyes: Negative for injury, harpreet pain, redness, and discharge, ENT: Negative for injury, pain, and discharge, Neck: Negative for injury, pain, and swelling, Respiratory: Negative for shortness of breath, cough, wheezing, and pleuritic chest pain, Abdomen/GI: Negative for abdominal pain, nausea, vomiting, diarrhea, and constipation, Back: Negative for injury and pain, : Negative for injury, bleeding, discharge, and swelling, MS/Extremity: Negative for injury and deformity, Skin: Negative for injury, rash, and discoloration, Neuro: Negative for headache, weakness, numbness, tingling, and seizure, 08:37 Cardiovascular: Positive for palpitations, Exam: 08:37 Constitutional: This is a well developed, well nourished patient who is awake, alert, harpreet and in no acute distress. Head/Face: Normocephalic, atraumatic. Eyes: Pupils equal round and reactive to light, extra-ocular motions intact. Lids and lashes normal. Conjunctiva and sclera are non-icteric and not injected. Cornea within normal limits. Periorbital areas with no swelling, redness, or edema. ENT: Nares patent. No nasal discharge, no septal abnormalities noted. Tympanic membranes are normal and external auditory canals are clear. Oropharynx with no redness, swelling, or masses, exudates, or evidence of obstruction, uvula midline. Mucous membranes moist. Neck: Trachea midline, no thyromegaly or masses palpated, and no cervical lymphadenopathy. Supple, full range of motion without nuchal rigidity, or vertebral point tenderness. No Meningismus. Chest/axilla: Normal chest wall appearance and motion. Nontender with no deformity. No lesions are appreciated. Cardiovascular: Regular rate and rhythm with a normal S1 and S2. No gallops, murmurs, or rubs. Normal PMI, no JVD. No pulse deficits. Respiratory: Lungs have equal breath sounds bilaterally, clear to auscultation and percussion. No rales, rhonchi or wheezes noted. No increased work of breathing, no retractions or nasal flaring. Abdomen/GI: Soft, non-tender, with normal bowel sounds. No distension or tympany. No guarding or rebound. No evidence of tenderness throughout. Back: No spinal tenderness. No costovertebral tenderness. Full range of motion. Skin: Warm, dry with normal turgor. Normal color with no rashes, no lesions, and no evidence of cellulitis. 08:37 ECG was reviewed by the Attending Physician. Vital Signs: 08:11 BP 129 / 100; Pulse 100; Resp 18 S; Temp 98.2(O); Pulse Ox 100% on R/A; Weight 77.11 kg aa5 (R); Height 6 ft. 0 in. (R); Pain 4/10; 08:11 Body Mass Index 23.06 (77.11 kg, 182.88 cm) aa5 08:11 Pain Scale: Adult aa5 MDM: 08:19 Medical Screening Exam initiated harpreet 08:39 Differential diagnosis: abnormal EKG, acute myocardial infarction, acute pericarditis, harpreet anxiety, costochondritis, esophagitis, pancreatitis, peptic ulcer disease, pericarditis, pleurisy, pneumonia, pulmonary embolus, stable angina, thoracic aortic disection, unstable angina. HEART Score: History: Slightly Suspicious (0), ECG: Normal (0), Age: < or = 45 years (0), Risk Factors: No Risk Factors Known (0). The patient was not given aspirin in the Emergency Department. Aspirin not given, patient refused. BRI Risk Score: TOTAL SCORE = 0. Data reviewed: vital signs, nurses notes, EKG. Consideration of Admission/Observation Escalation of care including admission/observation considered. I considered the following discharge prescriptions or medication management in the emergency department Medications were administered in the Emergency Department. See MAR. Independent interpretation of the following test(s) in the Emergency Department EKG: See my EKG interpretation above. Test considered but Not performed: Other Details no labs , pt refused. 04/01 08:20 Order name: EKG - Nurse/Tech; Complete Time: 08:26 [facility] 04/01 08:20 Order name: O2 Per Protocol; Complete Time: : [facility] 04/01 08:20 Order name: O2 Sat Monitoring; Complete Time: : [facility] EC:37 Rate is 92 beats/min. Rhythm is regular. QRS [place] is Normal. DC interval is normal. QRS harpreet interval is normal. QT interval is normal. No Q waves. T waves are Normal. No ST changes noted. Clinical impression: Normal ECG and No evidence of ischemia. Interpreted by me. Reviewed by me. Administered Medications: 08:31 Not Given (Patient Refused): aspirinchewable tablet 324 mg PO once; 81 mg tablets x 4 iw 08:31 Not Given (Patient Refused): [id number] mg IVP once; dilute with 10 mL 0.9% NaCl; iw give over 2 minutes Disposition Summary: 04/01/25 08:41 Discharge Ordered Notes: Location: [place] harpreet Problem: new harpreet Symptoms: have improved harpreet Condition: Stable harpreet Diagnosis - Chest pain, unspecified harpreet - Bipolar disorder, unspecified harpreet Followup: harpreet - With: Private Physician - When: Upon discharge from the Emergency Department - Reason: Recheck today's complaints, Continuance of care, Re-evaluation by your physician Followup: harpreet - With: Mike Prince MD - When: 2 - 3 days - Reason: Recheck today's complaints, Re-evaluation by your physician Discharge Instructions: - Discharge Summary Sheet harpreet - Nonspecific Chest Pain, Adult harpreet - Nonspecific Chest Pain, Adult, [id number] harpreet - Aspirin and Your Heart harpreet - Supporting Someone With Bipolar Disorder harpreet Forms: - Medication Reconciliation Form harpreet - Antibiotic Education harpreet - Prescription Opioid Use harpreet - Patient Portal Instructions harpreet - Leadership Thank You Letter harpreet Signatures: Dispatcher [employer] EDBib Hernandez MD MD cha Calderon, Audri RN RN aa5 Rosa Elena Olmstead RN iw Corrections: (The following items were deleted from the chart) 08:21 08:21 Chest Single View+RAD.RAD.BRZ ordered. EDMN EDMN : 08:20 Cardiac monitoring ordered. [facility] iw : 08:20 IV Saline Lock ordered. [facility] 08:20 Labs collected and sent ordered. [facility]
== END 2025-04-01 08:47 | disposition home or self-care (01) ==
LOC: ER 08:13
DX: R07.9 Chest pain, unspecified (principal); F31.9 Bipolar disorder, unspecified
CPT/HCPCS: 93005; 99284

== ENCOUNTER 2025-07-27 23:01 | Emergency (ER) | payer OTHER ==
--- NOTE | 2025-07-28 00:07 | ER ---
Nurse's Notes [facility] Name: Wojciech Zhu III Age: 44 yrs Sex: Male : 1980 Arrival Date: 07/27/2025 Time: 23:01 Bed IW2 Private MD: Diagnosis: Presentation: 07/27 23:30 Chief complaint: Patient states: on \T\ off pain on my left arm for 6 months now pain rg5 scale 7/10, no hx of trauma or fall. Coronavirus screen: Client denies travel out of the [place] in the last 14 days. Client indicates they have traveled out of the [place] in the last 14 days. Ebola Screen: Patient negative for fever greater than or equal to 101.5 degrees Fahrenheit, and additional compatible Ebola Virus Disease symptoms Patient denies exposure to infectious person. Patient denies travel to an Ebola-affected area in the 21 days before illness onset. Initial Sepsis Screen: Does the patient meet any 2 criteria? No. Patient's initial sepsis screen is negative. Does the patient have a suspected source of infection? No. Patient's initial sepsis screen is negative. Risk Assessment: Do you want to hurt yourself or someone else? Patient reports no desire to harm self or others. Onset of symptoms was July 27, 2025. 23:30 Method Of Arrival: Ambulatory rg5 23:30 Acuity: YOUSIF 4 rg5 Triage Assessment: 23:33 General: Appears in no apparent distress. comfortable, Behavior is calm, cooperative, rg5 appropriate for age. Pain: Complains of pain in left arm Quality of pain is described as aching. EENT: No signs and/or symptoms were reported regarding the EENT system. Neuro: Level of Consciousness is awake, alert, obeys commands, Oriented to person, place, time, situation. Respiratory: Airway is patent Trachea midline. GI: No signs and/or symptoms were reported involving the gastrointestinal system. : No signs and/or symptoms were reported regarding the genitourinary system. Derm: Skin is intact, Skin is dry. Musculoskeletal: Circulation, motion, and sensation intact. Range of motion: intact in all extremities. Historical: - Allergies: 23:33 No Known Allergies; rg5 - PMHx: 23:33 None; rg5 - PSHx: 23:33 None; rg5 - Infectious Disease History:: Denies. - Social history:: Smoking status: Patient reports the use of cigarette tobacco products, smokes one-half pack cigarettes per day. Assessment: 07/28 00:02 Reassessment: PT NOT IN LOBBY WHEN CALLED \T\[id number]. jj7 Vital Signs: 07/27 23:30 BP 113 / 79; Pulse 98; Resp 18; Temp 98; Pulse Ox 100% on R/A; Weight 77.11 kg; Height rg5 6 ft. 0 in. ; Pain 7/10; 23:30 Body Mass Index 23.06 (77.11 kg, 182.88 cm) rg5 23:30 Pain Scale: Adult rg5 ED Course: 23:04 Patient arrived in ED. mr 23:16 Bib Alcala MD is Attending Physician. harpreet 23:33 Triage completed. rg5 23:33 Arm band placed on right wrist. rg5 Administered Medications: No medications were administered Outcome: 07/28 00:07 Patient left the ED. jj7 Signatures: Bib Alcala MD MD cha Rivera, Mary, [facility] mr BolivarVicki RN RN jj7 Adrian Duran, NGUYEN RN rg5 Corrections: (The following items were deleted from the chart) 07/27 23:35 23:33 PMHx: Atrial fibrillation; rg5 rg5 23:35 23:33 PMHx: Bipolar disorder; rg5 rg5 23:35 23:33 PMHx: Schizophrenia; rg5 rg5
[2025-07-28 00:12] VITALS: BP 113/79; TEMP 98; O2SAT 100
== END 2025-07-28 00:07 | disposition left against medical advice (07) ==
LOC: ER 23:01
DX: Z53.21 Procedure and treatment not carried out due to patient leaving prior to being seen by health care provider (principal)
CPT/HCPCS: 99281

== ENCOUNTER 2025-08-03 00:58 | Emergency (ER) | payer OTHER ==
[2025-08-03] MEDS ORDERED: ONDANSETRON 4 MG (ODT) TAB ONE (01:18)
--- NOTE | 2025-08-03 01:18 | EDPHYS ---
Physician Documentation [facility] Name: Wojciech Zhu III Age: 44 yrs Sex: Male : 1980 Arrival Date: 08/03/2025 Time: 00:58 Bed 5 Private MD: ED Physician Yuridia Cummings HPI: 08/03 01:23 This 44 yrs old Black Male presents to ER via Unassigned with complaints of Abdominal dr5 Cramping, Chills. 01:23 Patient is a 44-year-old male with no past medical history coming in with generalized dr5 stomach cramping and diarrhea for the past 2 days. Patient reports about 4-5 episodes of diarrhea a day. Patient reports sick contacts at home with same symptoms. Patient denies fever, chest pain, shortness of breath.. Historical: - Allergies: :23 No Known Allergies; dr5 - Immunization history:: Adult Immunizations up to date. - Infectious Disease History:: Denies. - Social history:: Smoking status: Patient denies any tobacco usage or history of. ROS: 01:23 Constitutional: as per hpi dr5 Exam: 01:23 Constitutional: This is a well developed, well nourished patient who is awake, alert, dr5 and in no acute distress. Head/Face: Normocephalic, atraumatic. Eyes: Pupils equal round and reactive to light, extra-ocular motions intact. Lids and lashes normal. Conjunctiva and sclera are non-icteric and not injected. Cornea within normal limits. Periorbital areas with no swelling, redness, or edema. ENT: Nares patent. No nasal discharge, no septal abnormalities noted. Tympanic membranes are normal and external auditory canals are clear. Oropharynx with no redness, swelling, or masses, exudates, or evidence of obstruction, uvula midline. Mucous membranes moist. Chest/axilla: Normal chest wall appearance and motion. Nontender with no deformity. No lesions are appreciated. Cardiovascular: Regular rate and rhythm with a normal S1 and S2. Normal PMI, no JVD. No pulse deficits. Respiratory: Lungs have equal breath sounds bilaterally, clear to auscultation. No rales, rhonchi or wheezes noted. No increased work of breathing, no retractions or nasal flaring. Abdomen/GI: Soft, non-tender, non-distended Back: No spinal tenderness. No costovertebral tenderness. Full range of motion. Skin: Warm, dry with normal turgor. Normal color with no rashes, no lesions, and no evidence of cellulitis. MS/ Extremity: Pulses equal, no cyanosis. Neurovascular intact. Full, normal range of motion. Neuro: Awake and alert, GCS 15, oriented to person, place, time, and situation. Cranial nerves II-XII grossly intact. Motor strength 5/5 in all extremities. Sensory grossly intact. Cerebellar exam normal. Normal gait. Vital Signs: : BP 131 / 91; Pulse 92; Resp 16; Temp 98; Pulse Ox 100% ; Weight 77.11 kg; Height 6 ft. vc1 0 in. ; : Body Mass Index 23.06 (77.11 kg, 182.88 cm) vc1 MDM: 01:15 Medical Screening Exam initiated dr5 Differential diagnosis: Gastroenteritis, viral illness, nausea vomiting, diarrhea. Data dr5 reviewed: vital signs, nurses notes. Consideration of Admission/Observation Escalation of care including admission/observation considered. Escalation considered patient was not well-appearing.. I considered the following discharge prescriptions or medication management in the emergency department I discussed and recommended Over The Counter medications, Medications were administered in the Emergency Department. See MAR. Test considered but Not performed: Labs: Labs were considered to look for infection, anemia, acute kidney injury, dehydration but patient does not want blood work or IV.. CT: CT scan considered but patient declined. Care significantly affected by the following Social Determinants of Health: Poor access to healthcare and/or lack of insurance, Poor access to transportation, Problems related to employment. Counseling: I had a detailed discussion with the patient and/or guardian regarding the historical points, exam findings, and any diagnostic results supporting the discharge/admit diagnosis, the presence of at least one elevated blood pressure reading (>120/80) during this emergency department visit, the need for outpatient follow up, for definitive care, a family practitioner, a basin operator. Medication response: Response to treatment: the patient's symptoms have resolved after treatment. Special discussion: Based on the patient's Hx, exam, and Dx evaluation, there is no indication for emergent surgery or inpatient Tx. It is understood by the patient/guardian that if the Sx's persist or worsen they need to return immediately for re-evaluation. I discussed with the patient/guardian in detail that at this point there is no indication for admission to the hospital. It is understood, however, that if the symptoms persist or worsen the patient needs to return immediately for re-evaluation. Based on the history and exam findings, there is no indication for further emergent testing or inpatient evaluation. I discussed with the patient/guardian the need to see the basin operator for further evaluation of the symptoms. ED course: Will cover patient for toxic gastroenteritis with Augmentin. Zofran given for nausea and vomiting. Recommended patient take Pepto-Bismol as needed for symptoms. Patient is agreeable to plan. Recommend increase hydration. All questions are. Strict ER precautions given.. Administered Medications: : Drug: Ondansetron Oral Disintegrating Tablet Oral Disintegrating Tablet 4 mg PO once jb4 Route: PO; Follow up: Response: Medication administered at discharge. jb4 Disposition Summary: 08/03/25 01:17 Discharge Ordered Notes: Location: Home dr5 Condition: Stable dr5 Diagnosis - Other specified noninfective gastroenteritis and colitis dr5 Followup: dr5 - With: Emergency Department - When: As needed - Reason: Worsening of condition Followup: dr5 - With: Private Physician - When: 1 - 2 days - Reason: Recheck today's complaints, Continuance of care, Re-evaluation by your physician Discharge Instructions: - Discharge Summary Sheet dr5 - Colitis dr5 Forms: - Medication Reconciliation Form dr5 - Antibiotic Education dr5 - Patient Portal Instructions dr5 - Leadership Thank You Letter dr5 Prescriptions: - Augmentin 875-125 mg Oral Tablet - take 1 tablet ORAL route every 12 hours for 10 days; 20 tablet; Refills: 0, dr5 Product Selection Permitted - Zofran 4 mg Oral Tablet - take 1 tablet ORAL route every 12 hours As needed; 20 tablet; Refills: 0, dr5 Product Selection Permitted Signatures: Rashard Vu RN RN jb4 Ricarda Carreon RN RN vc1 Migel Valencia, STUART-Rishi STEPHENSONP-[id number]
--- NOTE | 2025-08-03 01:31 | ER ---
Nurse's Notes [facility] Name: Wojciech Zhu III Age: 44 yrs Sex: Male : 1980 Arrival Date: 08/03/2025 Time: 00:58 Bed 5 Private MD: Diagnosis: Other specified noninfective gastroenteritis and colitis Presentation: 08/03 01:27 Chief complaint: Patient states: diarrhea and stomach cramps times 2 days. Coronavirus vc1 screen: Client denies travel out of the [place] in the last 14 days. At this time, the client does not indicate any symptoms associated with coronavirus-19. Ebola Screen: Patient negative for fever greater than or equal to 101.5 degrees Fahrenheit, and additional compatible Ebola Virus Disease symptoms Patient denies exposure to infectious person. Patient denies travel to an Ebola-affected area in the 21 days before illness onset. No symptoms or risks identified at this time. Initial Sepsis Screen: Does the patient meet any 2 criteria? No. Patient's initial sepsis screen is negative. Does the patient have a suspected source of infection? No. Patient's initial sepsis screen is negative. Risk Assessment: Do you want to hurt yourself or someone else? Patient reports no desire to harm self or others. Note Pt doesn't want labs, requests medications only. Onset of symptoms was August 01, 2025. 01:27 Method Of Arrival: Ambulatory vc1 01:27 Acuity: YOUSIF 4 vc1 Triage Assessment: 01:30 General: Appears in no apparent distress. uncomfortable, slender, unkempt, Behavior is vc1 calm, cooperative, appropriate for age. Pain: Complains of pain in abdomen. EENT: No deficits noted. No signs and/or symptoms were reported regarding the EENT system. Neuro: Level of Consciousness is awake, alert, obeys commands, Oriented to person, place, time, situation, Appropriate for age. Cardiovascular: Capillary refill < 3 seconds. Respiratory: Airway is patent Respiratory effort is even, unlabored, Respiratory pattern is regular, symmetrical, Breath sounds are clear bilaterally. GI: Abdomen is flat, non-distended, Reports cramping, diarrhea, nausea. : No deficits noted. No signs and/or symptoms were reported regarding the genitourinary system. Derm: Skin is intact, is healthy with good turgor, Skin is dry, Skin is normal. Musculoskeletal: Circulation, motion, and sensation intact. Range of motion: intact in all extremities. Historical: - Allergies: :23 No Known Allergies; dr5 - Immunization history:: Adult Immunizations up to date. - Infectious Disease History:: Denies. - Social history:: Smoking status: Patient denies any tobacco usage or history of. Screenin: [facility] ED Fall Risk Assessment (Adult) History of falling in the last 3 months, jb4 including since admission No falls in past 3 months (0 pts) Confusion or Disorientation No (0 pts) Intoxicated or Sedated No (0 pts) Impaired Gait No (0 pts) Mobility Assist Device Used No (0 pt) Altered Elimination No (0 pt) Score/Fall Risk Level 0 - 2 = Low Risk Oriented to surroundings, Maintained a safe environment. Abuse screen: Denies threats or abuse. Nutritional screening: No deficits noted. Tuberculosis screening: No symptoms or risk factors identified. Assessment: : General: Appears in no apparent distress. comfortable, Behavior is calm, cooperative, jb4 appropriate for age. Pain: Complains of pain in abdomen Pain currently is 5 out of 10 on a pain scale. Quality of pain is described as crampy. Neuro: Level of Consciousness is awake, alert, obeys commands, Oriented to person, place, time, situation. GI: Abdomen is flat, non-distended. GI: Reports cramping, diarrhea, nausea. Derm: Skin is intact, Skin is pink, warm \T\ dry. Musculoskeletal: Circulation, motion, and sensation intact. Range of motion: intact in all extremities. Vital Signs: 01:27 BP 131 / 91; Pulse 92; Resp 16; Temp 98; Pulse Ox 100% ; Weight 77.11 kg; Height 6 ft. vc1 0 in. ; :27 Body Mass Index 23.06 (77.11 kg, 182.88 cm) vc1 ED Course: : Patient arrived in ED. gm2 01:12 Migel Valencia FNP-C is [facility]. dr5 01:12 Yuridia Cummings MD is Attending Physician. dr5 01:26 Patient has correct armband on for positive identification. Bed in low position. Call jb4 light in reach. Side rails up X 1. Provided Education on: discharge instructions. :26 No provider procedures requiring assistance completed. Patient did not have IV access jb4 during this emergency room visit. 01:29 Triage completed. vc1 01:29 Arm band placed on left wrist. vc1 Administered Medications: : Drug: Ondansetron Oral Disintegrating Tablet Oral Disintegrating Tablet 4 mg PO once jb4 Route: PO; : Follow up: Response: Medication administered at discharge. jb4 Medication: : VIS not applicable for this client. jb4 Outcome: 01:17 Discharge ordered by . dr5 : Discharged to home ambulatory, jb4 : Condition: stable : Discharge instructions given to patient, Instructed on discharge instructions, follow up and referral plans. medication usage, Demonstrated understanding of instructions, follow-up care, medications, Prescriptions given X 2, :30 Patient left the ED. jb4 Signatures: Rashard Vu RN RN jb4 Ricarda Carreon RN RN vc1 Apple Perez gm2 Migel Valencia, MANUFA[employer]URING AREA MANAGER-C MANUFACTURING AREA MANAGER-Cdr5
[2025-08-03 01:35] VITALS: BP 131/91; TEMP 98; O2SAT 100
== END 2025-08-03 01:30 | disposition home or self-care (01) ==
LOC: ER 00:58
DX: K52.89 Other specified noninfective gastroenteritis and colitis (principal)
CPT/HCPCS: 99283; Q0162